=== PATIENT | male | born 2005 | race African-American/Black ===

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

== ENCOUNTER 2025-04-15 16:16 | Emergency (ER) | payer BC, SELFPAY ==
[2025-04-15 16:20] VITALS: BP 136/64; PULSE 110; O2SAT 99
[2025-04-15 16:22] VITALS: BP 121/56; PULSE 90; RESP 18; TEMP 36.6; O2SAT 98; BMI 21.7
[2025-04-15 16:32] VITALS: BP 121/56; PULSE 90; RESP 18; TEMP 36.6; O2SAT 98
--- NOTE | 2025-04-15 16:35 | PC.NURSE ---
19 M presents to ED with h/a, light sensitivity, all over body pain with abrasians to bilat elbows, bilat knees, and RLE pain. Pt was pulled from call by PD and c/o injury, worse pain is in the head with 10/10 pain. A+OX2-3 some confusion to date but new it was 2024, thought it was March. RR even and unlabored, denies CP or SOB. When pt was asked if he used drugs he said yes and just said All of them when asked which ones. Pt sts he drinks ocassionally as well. Pt has eyes closed but eyes are tracking when open, pupils equal bilat.
--- OUTSIDE RECORDS SUMMARY | 2025-04-15 16:43 | XMS_ITS | Encounter Summary ---
Author Organization [facility] Address [address] [place] [address] Phone Care Team Providers Care Gauge Inspector Name Role Phone Provider, Ginny BUCKLEY Primary Care Provider [phone] Encounter Details Date Type Department Care Team (Late st Contact Info) Description 03/21/2016 Documentation [facility] [place] Family Medicine [address] [place] [address] Family Medicine, Physician [address] [place] [address] Social History Tobacco Use Types Packs/Day Years Used Date Smoking Tobacco: Never Assessed Sex and Gender Information Value Date Recorded Sex Assigned at Not on file Legal Sex Male 4:59 PM EDT Gender Identity Not on file Sexual Orientation Straight 08/29/2020 9: 28 AM EST documented as of this encounter Plan of Treatment Not on file documented as of this encounter Visit Diagnoses Not on filedocumented in this encounter Care Teams Gauge Inspector Relationship Specialty Start Date End Date Provider, MD Ginny [address] [place] [phone] PCP - General Pediatrics 10/09/23 10/06/24 documented as of this encounter
--- OUTSIDE RECORDS SUMMARY | 2025-04-15 16:43 | XMS_ITS | Clinical Summary ---
Author Organization [facility] Address [address] [place] [address] Phone Care Team Providers Care Trench Digger Name Role Phone Unavailable Primary Care Provider Unavailabl e Allergies No known active allergies Medications albuterol HFA (PROAIR HFA) 108 (90 Base) MCG/ACT inhalerIndication s:Intermittent asthma, uncomplicated Inhale 2 puffs every 4 (four) hours as needed for wheezing (cough or wheeze). 2 Units 9 Active Additional Information Patient not taking.Reported on 02/06/2022 Active Problems Problem Noted Date Diagnosed Date Academic underachievement 08/29/2020 Overview (08/29/2020): 2020: was in behavioral classroom in past. Transferred out in 2019. Still struggles in school Assessment & Plan (02/06/2022 1:45 PM EDT): Needed summer school this year. Did well in summer school. Missed a lot of some classes last year due to skipping. Minor would not go to class if he did not like it. Is hoping to play football this fall and understands he will need to keep his grades up. Assessment & Plan (08/29/2020 9:53 AM EST): Encouraged GM to speak with patient's mother & ask her to see if school can provide supports Resolved Problems Problem Noted Date Diagnosed Date Resolved Date Intermittent asthma 01/05/2013 08/29/19 21 Overview (06/29/2018): albuterol prn. Used advair in past Assessment & Plan (06/29/2018 10:57 AM EST): No issues since last winter Has not needed inhaler in almost 1 year HAS ALBUTEROL AT HOME TO USE IF NEEDED Immunizations Immunization Administration Dates Next Due DTaP / Hep B / IPV 2005,2005, 006 DTaP 5 07/25/2009,10/14/2006 H1N1 07/25/2009 HPV Vaccine 9 Valent 06/29/2018,04/10/2017 Hep A, ped/adol 04/10/2017,12/23/2006,07/09/2006 Hep B, ped/adol 2005 Hib (HbOC) 10/14/2006 Hib (PRP-T) 2005,2005,2005 IPV 07/25/2009 Influenza Split 05/16/2013, 2,10/01/2011,09/25 Influenza, injectable, quadrivalent 06/17/2014 Influenza, injectable, quadr ivalent, preservative free 06/27/2020,07/11/2019,06/29/2018,04/10,03/20/2016,03/07/2015 Influenza, injectable, trivalent 010,07/19/2008,07/12/2007,08/12,07/09/2006 MMR 07/25/2009 MMRV 07/09/2006 Meningococcal B Trumenba 02/06/2022 Meningococcal Conj (Menactra) MCV4P 02/06/2022,0 04/10/2017 Pneumococcal Conjugate 10/14/2006,2005,2005,08/21 Tdap 04/10/2017 Varicella 07/25/2009 Family History Medical History Relation Name Comments Asthma Brother Khris Hypertension Father Nevin Diabetes Maternal Grandfather Heart disease Maternal Grandfather with p acemaker Hypertension Maternal Grandfather Hypertension Maternal Grandmother Stroke Maternal Grandmother Cervical cancer Paternal Grandmother Strabismus Sister Linda Relation Name Status Comments Brother Khris Father Ritoanatflash Alive Maternal Grandfather Maternal Grandmother Mother Tracey Alive Paternal Grandmother Sister Linda Social History Tobacco Use Types Packs/Day Years Used Date Smoking Tobacco: Never Smokeless Tobacco: Never Alcohol Use Standard Drinks/Week Comments No 0 (1 standard drink = 0.6 oz pur e alcohol) Hunger/Food Answer Date Recorded In the last 12 months, did y ou or your family ever eat less than you felt you should because there wasn't enough money for food? No 02/06/2022 Stable Housing Answer Date Recorded Are you worried that in the next 2 months you may not have stable housing? No 02/06/2022 Transportation Concerns Answer Date Rec orded In the last 12 months, have you or your family ever had to go without healthcare because you didn't have a way to get there? No 02/06/2022 Hazards in Home Answer Date Recorded Think about the place you li ve. Do you have problems with any of the following? Pests (mice or roaches), mold, no/not working smoke detectors, water leaks, no window guards. No 2021 Financing Utilities Answer Date Recorde d In the last 12 months, has t he electric, gas, oil, or water [employer] threatened to shut off your services in your home? No 02/06/2022 Safety at Home Answer Date Recorded Are you or your family worried about feeling saf e in your home? No 02/06/2022 Outside Support Answer Date Recorded Do you feel that you need mo re support from other people or programs to help you care for yourself or your family? No 02/06/2022 Understanding Health Concerns Answer Da te Recorded Do you need help understandi ng your or your child's healthcare needs (diagnosis, medications, plan, etc.)? No 02/06/2022 Financing Health Concerns Answer Date R ecorded In the last 12 months, was t here a time when your child needed to see a doctor or get medications or supplies but could not because of cost? No 02/06/2022 Missing School or Work Answer Date Kali rded Did you or your child miss s chool or work because of a health problem that could have been avoided? No 02/06/2022 Sex and Gender Information Value Date Recorded Sex Assigned at Not on file Legal Sex Male 4:59 PM EDT Gender Identity Not on file Sexual Orientation Straight 08/29/2020 9: 28 AM EST Last Filed Vital Signs Vital Sign Reading Time Taken Comments Blood Pressure 122/62 02/06/2022 1:16 PM EDT Pulse 66 02/06/2022 1:16 PM EDT Temperature 37.1 C (98.7 F) 02/06/2022 1:16 PM EDT Respiratory Rate - - Oxygen Saturation - - Inhaled Oxygen Concentration - - Weight 68.9 kg (151 lb 12.8 oz) 02/06/2022 1:16 PM EDT Height 177.8 cm (5' 10 ) 02/06/2022 1:16 PM EDT Body Mass Index 21.78 02/06/2022 1:16 PM EDT Body Mass Index Percentile 60.84% 02/06/2022 1:1 6 PM EDT Growth Chart: [facility] (Boys, 2-2 0 Years) Plan of Treatment Health Maintenance Due Date Last Done Comments Men B Vaccine (2 of 2 - Trum enba SCDM 2-dose series) 08/09/2022 02/06/2022 Influenza Vaccines (#1) 2025 06/27/20 20, 07/11/2019, 06/29/2018, Additional history exists COVID-19 Vaccine (3 - 2024-2 6 season) 2025 08/17/2021, 07/20/2021 DTaP,Tdap,and Td Vaccines (7 - Td or Tdap) 04/10/2027 04/10/2017, 07/25/2009, 10/14/2006, Additional history exists Hepatitis B Vaccines Completed 2005, 2005, 2005, Additional history exists HIB Vaccines Completed 10/14/2006, 12/12, 2005, Additional history exists Pneumococcal Vaccine Completed 10/14/2006, 2005, 2005, Additional history exists IPV Vaccines Completed 07/25/2009, 12/12, 2005, Additional history exists MMR Vaccines Completed 07/25/2009, 07/09/2006 Varicella Vaccines Completed 07/25/2009, 07/09/2006 Hepatitis A Vaccines Completed 04/10/2017, 12/23/2006, 07/09/2006 HPV Vaccines Completed 06/29/2018, 04/10/2017 Meningococcal Vaccine Completed 02/06/2022, 017 Insurance [facility] NON PCC [facility] PPO
--- OUTSIDE RECORDS SUMMARY | 2025-04-15 16:43 | XMS_ITS | Encounter Summary ---
Author Organization [facility] Address [address] [place] [address] Phone Care Team Providers Care Clammer Name Role Phone Provider, Ginny BUCKLEY Primary Care Provider [phone] Encounter Details Date Type Department Care Team (Late st Contact Info) Description 10/02/2011 Documentation [facility] [place] Family Medicine [address] [place] [address] Family Medicine, Physician [address] [place] [address] Social History Tobacco Use Types Packs/Day Years [...] on filedocumented in this encounter Care Teams Clammer Relationship Specialty Start Date End Date Provider, MD Ginny [address] [place] [phone] PCP - General Pediatrics 10/09/23 10/06/24 documented as of this encounter
--- OUTSIDE RECORDS SUMMARY | 2025-04-15 16:43 | XMS_ITS | Encounter Summary ---
Author Organization [facility] Address [address] [place] [address] Phone Care Team Providers Care Government Property Inspector Name Role Phone Provider, Ginny BUCKLEY Primary Care Provider [phone] Encounter Details Date Type Department Care Team (Late st Contact Info) Description 10/20/2012 [place] [facility] [place] [address] [place] [address] Family Medicine, Physician [address] [place] [address] Social History Tobacco Use Types Packs/Day Years [...] on filedocumented in this encounter Care Teams Government Property Inspector Relationship Specialty Start Date End Date Provider, MD Ginny [address] [place] [phone] PCP - General Pediatrics 10/09/23 10/06/24 documented as of this encounter
--- OUTSIDE RECORDS SUMMARY | 2025-04-15 16:43 | XMS_ITS | Encounter Summary ---
Author Organization [facility] Address [address] [place] [address] Phone Care Team Providers Care Configuration Management Consultant Name Role Phone Provider, Ginny BUCKLEY Primary Care Provider [phone] Encounter Details Date Type Department Care Team (Late st Contact Info) Description 10/02/2011 [place] [facility] [place] [address] [place] [address] Family Medicine, Physician [address] [place] [address] Social History Tobacco Use Types Packs/Day Years [...] on filedocumented in this encounter Care Teams Configuration Management Consultant Relationship Specialty Start Date End Date Provider, MD Ginny [address] [place] [phone] PCP - General Pediatrics 10/09/23 10/06/24 documented as of this encounter
--- OUTSIDE RECORDS SUMMARY | 2025-04-15 16:43 | XMS_ITS | Encounter Summary ---
Author Organization [facility] Address [address] [place] [address] Phone Care Team Providers Care Body Mechanic Name Role Phone Provider, Ginny BUCKLEY Primary Care Provider [phone] Encounter Details Date Type Department Care Team (Late st Contact Info) Description 03/08/2015 [place] [facility] [place] [address] [place] [address] Family Medicine, Physician [address] [place] [address] Social History Tobacco Use Types Packs/Day Years [...] on filedocumented in this encounter Care Teams Body Mechanic Relationship Specialty Start Date End Date Provider, MD Ginny [address] [place] [phone] PCP - General Pediatrics 10/09/23 10/06/24 documented as of this encounter
--- OUTSIDE RECORDS SUMMARY | 2025-04-15 16:43 | XMS_ITS | Encounter Summary ---
Author Organization [facility] Address [address] [place] [address] Phone Care Team Providers Care Loan Administrator Name Role Phone Provider, Ginny BUCKLEY Primary Care Provider [phone] Encounter Details Date Type Department Care Team (Late st Contact Info) Description 06/07/2012 Documentation [facility] [place] Family Medicine [address] [place] [address] Family Medicine, Physician [address] [place] [address] Social History Tobacco Use Types Packs/Day Years [...] on filedocumented in this encounter Care Teams Loan Administrator Relationship Specialty Start Date End Date Provider, MD Ginny [address] [place] [phone] PCP - General Pediatrics 10/09/23 10/06/24 documented as of this encounter
--- OUTSIDE RECORDS SUMMARY | 2025-04-15 16:43 | XMS_ITS | Encounter Summary ---
Author Organization [facility] Address [address] [place] [address] Phone Care Team Providers Care Varnish Inspector Name Role Phone Provider, Ginny BUCKLEY Primary Care Provider [phone] Encounter Details Date Type Department Care Team (Late st Contact Info) Description 10/02/2011 [place] [facility] [place] [address] [place] [address] Family Medicine, Physician [address] [place] [address] Social History Tobacco Use Types Packs/Day Years [...] on filedocumented in this encounter Care Teams Varnish Inspector Relationship Specialty Start Date End Date Provider, MD Ginny [address] [place] [phone] PCP - General Pediatrics 10/09/23 10/06/24 documented as of this encounter
--- OUTSIDE RECORDS SUMMARY | 2025-04-15 16:43 | XMS_ITS | Encounter Summary ---
Author Organization [facility] Address [address] [place] [address] Phone Care Team Providers Care Grounds Worker Name Role Phone Provider, Ginny BUCKLEY Primary Care Provider [phone] Encounter Details Date Type Department Care Team (Late st Contact Info) Description 03/08/2015 Documentation [facility] [place] Family Medicine [address] [place] [address] Family Medicine, Physician [address] [place] [address] Social History Tobacco Use Types Packs/Day Years [...] on filedocumented in this encounter Care Teams Grounds Worker Relationship Specialty Start Date End Date Provider, MD Ginny [address] [place] [phone] PCP - General Pediatrics 10/09/23 10/06/24 documented as of this encounter
--- OUTSIDE RECORDS SUMMARY | 2025-04-15 16:43 | XMS_ITS | Encounter Summary ---
Author Organization [facility] Address [address] [place] [address] Phone Care Team Providers Care Automotive Worker Foreman Name Role Phone Provider, Ginny BUCKLEY Primary Care Provider [phone] Encounter Details Date Type Department Care Team (Late st Contact Info) Description 06/08/2012 [place]ation [facility] [place] [address] [place] [address] Family Medicine, Physician [address] [place] [address] Social History Tobacco Use Types Packs/Day Years [...] on filedocumented in this encounter Care Teams Automotive Worker Foreman Relationship Specialty Start Date End Date Provider, MD Ginny [address] [place] [phone] PCP - General Pediatrics 10/09/23 10/06/24 documented as of this encounter
--- OUTSIDE RECORDS SUMMARY | 2025-04-15 16:43 | XMS_ITS | Encounter Summary ---
Author Organization [facility] Address [address] [place] [address] Phone Care Team Providers Care Lighthouse Keeper Name Role Phone Provider, Ginny BUCKLEY Primary Care Provider [phone] Encounter Details Date Type Department Care Team (Late st Contact Info) Description 12/28/[address] [facility] [place] Medicine [address] [place] [address] Family Medicine, Physician [address] [place] [address] Social History Tobacco Use Types Packs/Day Years [...] on filedocumented in this encounter Care Teams Lighthouse Keeper Relationship Specialty Start Date End Date Provider, MD Ginny [address] [place] [phone] PCP - General Pediatrics 10/09/23 10/06/24 documented as of this encounter
--- OUTSIDE RECORDS SUMMARY | 2025-04-15 16:43 | XMS_ITS | Encounter Summary ---
Author Organization [facility] Address [address] [place] [address] Phone Care Team Providers Care Skirt Trimmer Name Role Phone Provider, Ginny BUCKLEY Primary Care Provider [phone] Encounter Details Date Type Department Care Team (Late st Contact Info) Description 02/23/2014 Documentation [facility] [place] [address] [place] [address] Family Medicine, Physician [address] [place] [address] Social History Tobacco Use Types Packs/Day Years [...] on filedocumented in this encounter Care Teams Skirt Trimmer Relationship Specialty Start Date End Date Provider, MD Ginny [address] [place] [phone] PCP - General Pediatrics 10/09/23 10/06/24 documented as of this encounter
--- OUTSIDE RECORDS SUMMARY | 2025-04-15 16:43 | XMS_ITS | Encounter Summary ---
Author Organization [facility] Address [address] [place] [address] Phone Care Team Providers Care Research Archaeologist Name Role Phone Provider, Ginny BUCKLEY Primary Care Provider [phone] Encounter Details Date Type Department Care Team (Late st Contact Info) Description 02/10/2013 Documentation [facility] [place] Medicine [address] [place] [address] Family Medicine, Physician [address] [place] [address] Social History Tobacco Use Types Packs/Day Years [...] on filedocumented in this encounter Care Teams Research Archaeologist Relationship Specialty Start Date End Date Provider, MD Ginny [address] [place] [phone] PCP - General Pediatrics 10/09/23 10/06/24 documented as of this encounter
--- OUTSIDE RECORDS SUMMARY | 2025-04-15 16:43 | XMS_ITS | Encounter Summary ---
Author Organization [facility] Address [address] [place] [address] Phone Care Team Providers Care Compensation And Benefits Advisor Name Role Phone Provider, Ginny BUCKLEY Primary Care Provider [phone] Encounter Details Date Type Department Care Team (Late st Contact Info) Description 05/17/2013 Documentation [facility] [place] [address] [place] [address] Family Medicine, Physician [address] [place] [address] Social History Tobacco Use Types Packs/Day Years [...] on filedocumented in this encounter Care Teams Compensation And Benefits Advisor Relationship Specialty Start Date End Date Provider, MD Ginny [address] [place] [phone] PCP - General Pediatrics 10/09/23 10/06/24 documented as of this encounter
--- OUTSIDE RECORDS SUMMARY | 2025-04-15 16:43 | XMS_ITS | Encounter Summary ---
Author Organization [facility] Address [address] [place] [address] Phone Care Team Providers Care Tire Recapper Name Role Phone Provider, Ginny BUCKLEY Primary Care Provider [phone] Encounter Details Date Type Department Care Team (Late st Contact Info) Description 02/26/2017 Conversion Encounter [facility] [place] [address] [place] [address] Social History Tobacco Use Types Packs/Day Years [...] on filedocumented in this encounter Care Teams Tire Recapper Relationship Specialty Start Date End Date Provider, MD Ginny [address] [place] [phone] PCP - General Pediatrics 10/09/23 10/06/24 documented as of this encounter
--- OUTSIDE RECORDS SUMMARY | 2025-04-15 16:43 | XMS_ITS | Encounter Summary ---
Author Organization [facility] Address [address] [place] [address] Phone Care Team Providers Care Child Care Coordinator Name Role Phone Provider, Ginny BUCKLEY Primary Care Provider [phone] Encounter Details Date Type Department Care Team (Late st Contact Info) Description 06/19/2014 Documentation [facility] [place] Family Medicine [address] [place] [address] Family Medicine, Physician [address] [place] [address] Social History Tobacco Use Types Packs/Day Years [...] on filedocumented in this encounter Care Teams Child Care Coordinator Relationship Specialty Start Date End Date Provider, MD Ginny [address] [place] [phone] PCP - General Pediatrics 10/09/23 10/06/24 documented as of this encounter
--- OUTSIDE RECORDS SUMMARY | 2025-04-15 16:43 | XMS_ITS | Encounter Summary ---
Author Organization [facility] Address [address] [place] [address] Phone Care Team Providers Care Baker Doughnut Name Role Phone Provider, Ginny BUCKLEY Primary Care Provider [phone] Encounter Details Date Type Department Care Team (Late st Contact Info) Description 10/20/2012 [place]ation [facility] [place] [address] [place] [address] Family Medicine, Physician [address] [place] [address] Social History Tobacco Use Types Packs/Day Years [...] on filedocumented in this encounter Care Teams Baker Doughnut Relationship Specialty Start Date End Date Provider, MD Ginny [address] [place] [phone] PCP - General Pediatrics 10/09/23 10/06/24 documented as of this encounter
--- OUTSIDE RECORDS SUMMARY | 2025-04-15 16:43 | XMS_ITS | Encounter Summary ---
Author Organization [facility] Address [address] [place] [address] Phone Care Team Providers Care Sr. Merchandise Planner Name Role Phone Provider, Ginny BUCKLEY Primary Care Provider [phone] Encounter Details Date Type Department Care Team (Late st Contact Info) Description 03/21/2016 Documentation [facility] [place] [address] [place] [address] Family Medicine, Physician [address] [place] [address] Social History Tobacco Use Types Packs/Day Years [...] on filedocumented in this encounter Care Teams Sr. Merchandise Planner Relationship Specialty Start Date End Date Provider, MD Ginny [address] [place] [phone] PCP - General Pediatrics 10/09/23 10/06/24 documented as of this encounter
--- OUTSIDE RECORDS SUMMARY | 2025-04-15 16:43 | XMS_ITS | Encounter Summary ---
Author Organization [facility] Address [address] [place] [address] Phone Care Team Providers Care Horse Groomer Name Role Phone Provider, Ginny BUCKLEY Primary Care Provider Encounter Details Date Type Department Care Team (Late st Contact Info) Description 01/05/2013 Documentation [facility] [place] [address] [place] [address] Family Medicine, Physician [address] [place] [address] Social History Tobacco Use Types Packs/Day Years [...] on filedocumented in this encounter Care Teams Horse Groomer Relationship Specialty Start Date End Date Provider, MD Ginny [address] [place] [phone] PCP - General Pediatrics 10/09/23 10/06/24 documented as of this encounter
--- OUTSIDE RECORDS SUMMARY | 2025-04-15 16:43 | XMS_ITS | Encounter Summary ---
Author Organization [facility] Address [address] [place] [address] Phone Care Team Providers Care Manufacturing Laborer Name Role Phone Provider, Ginny BUCKLEY Primary Care Provider [phone] Encounter Details Date Type Department Care Team (Late st Contact Info) Description 06/22/2015 Documentation [facility] [place] [address] [place] [address] Family Medicine, Physician [address] [place] [address] Social History Tobacco Use Types Packs/Day Years [...] on filedocumented in this encounter Care Teams Manufacturing Laborer Relationship Specialty Start Date End Date Provider, MD Ginny [address] [place] [phone] PCP - General Pediatrics 10/09/23 10/06/24 documented as of this encounter
--- OUTSIDE RECORDS SUMMARY | 2025-04-15 16:43 | XMS_ITS | Encounter Summary ---
Author Organization [facility] Address [address] [place] [address] Phone Care Team Providers Care Silver Designer Name Role Phone Provider, Ginny BUCKLEY Primary Care Provider [phone] Encounter Details Date Type Department Care Team (Late st Contact Info) Description 06/19/2014 Documentation [facility] Family Medicine [address] [place] [address] Family Medicine, Physician [address] [place] [address] Social History Tobacco Use Types Packs/Day Years [...] on filedocumented in this encounter Care Teams Silver Designer Relationship Specialty Start Date End Date Provider, MD Ginny [address] [place] [phone] PCP - General Pediatrics 10/09/23 10/06/24 documented as of this encounter
--- OUTSIDE RECORDS SUMMARY | 2025-04-15 16:43 | XMS_ITS | Encounter Summary ---
Author Organization [facility] Address [address] [place] [address] Phone Care Team Providers Care Crm Business Analyst Name Role Phone Provider, Ginny BUCKLEY Primary Care Provider [phone] Encounter Details Date Type Department Care Team (Late st Contact Info) Description 03/21/2016 Documentation [facility] [place] [address] [place] [address] Family Medicine, Physician [address] [place] [address] Social History Tobacco Use Types Packs/Day Years [...] on filedocumented in this encounter Care Teams Crm Business Analyst Relationship Specialty Start Date End Date Provider, MD Ginny [address] [place] [phone] PCP - General Pediatrics 10/09/23 10/06/24 documented as of this encounter
[2025-04-15 18:37] VITALS: BP 121/56; PULSE 90; RESP 18; TEMP 36.6; O2SAT 98
[2025-04-15 18:47] LABS: Hematocrit 39.1 % (42.0-52.0); Hemoglobin 14.3 g/dl (14.0-18.0); Imm Gran Abs Auto 0.34 X10*3/uL (0.00-0.03); Imm Gran Pct Auto 1.2 % (0.0-0.4); Lymphocytes Absolute Auto 0.7 X10*3/uL (1.2-4.9); MANUAL DIFF FLAG SCAN; Mean Corpuscular HGB Conc 36.6 g/dl (31.0-36.0); Mean Corpuscular Hemoglobin 30.7 pg (27.0-33.0); Mean Corpuscular Volume 83.9 fL (80.0-98.0); NRBC Abs Auto 0.000 X10*3/uL (0.0-0.012); NRBC Pct Auto 0.0 /100WBC (0.0-0.2); Platelet Count 352 X10*3/uL (160-400); Red Blood Count 4.66 X10*6/uL (4.60-5.80); SCAN SMEAR FLAG 1; White Blood Count 27.4 X10*3/uL (4.8-10.8)
[2025-04-15 18:53] LABS: Alanine Aminotransferase 15 U/L (0-40); Albumin Level 5.1 g/dL (3.5-5.0); Alkaline Phosphatase 60 U/L (39-117); Anion Gap 13 (12-20); Aspartate Amino Transferase 27 U/L (5-37); Blood Urea Nitrogen 10 mg/dL (9-16); Calcium 9.9 mg/dL (8.4-10.2); Carbon Dioxide 22 mmol/L (22-29); Chloride 108 mmol/L (96-108); Creatinine Clr Calc Pharmacy 116.1; Estimated Glomerular Filt Rate > 60; Potassium 3.4 mmol/L (3.3-5.1); Sodium 140 mmol/L (135-145); Total Protein 7.6 g/dL (6.5-8.0)
[2025-04-15 19:15] LABS: Resp Syncy Virus RNA Qual PCR NEGATIVE (Negative); SARS COV2 PCR INHOUSE NEGATIVE (Negative)
== END 2025-04-15 18:43 | disposition left against medical advice (07) ==
PROVIDERS: Physician Assistant; Emergency Provider Student in an Organized Health Care Education/Training Program
DX: R51.9 Headache, unspecified (principal); Z53.21 Procedure and treatment not carried out due to patient leaving prior to being seen by health care provider
CPT/HCPCS: 80053; 85025; 87637; 99283; 99284